=== PATIENT | female | born 1970 | race Two or more races ===

== ENCOUNTER 2019-04-28 16:27 | Emergency (ER) | payer BC ==
[~2019-04-28] VITALS: Ht 162.6 cm; Wt 85.0 kg
[2019-04-28 19:35] VITALS: BP 145/85
== END 2019-04-28 19:36 | disposition home or self-care (01) ==
LOC: ER 16:27
DX: H92.03 Otalgia, bilateral (principal); Z90.49 Acquired absence of other specified parts of digestive tract; Z98.890 Other specified postprocedural states
CPT/HCPCS: 99283

== ENCOUNTER 2020-04-24 20:30 | Emergency (ER) | payer BC ==
[~2020-04-24] VITALS: Ht 165.1 cm; Wt 78.0 kg
[2020-04-24] MEDS ORDERED: IBUPROFEN 400MG TABLET PO ONE (22:15)
[2020-04-24 22:59] VITALS: BP 146/89
[2020-04-24 23:02] LABS: CLARITY URINE CLOUDY (CLEAR); COLOR URINE YELLOW (YELLOW); KETONES URINE NEGATIVE (NEGATIVE); LEUKOCYTE ESTERASE URINE NEGATIVE (NEGATIVE); NITRITE URINE NEGATIVE (NEGATIVE); OCCULT BLOOD URINE NEGATIVE (NEGATIVE); PROTEIN URINE NEGATIVE (NEGATIVE); SPECIFIC GRAVITY URINE 1.021 (1.005-1.030)
== END 2020-04-24 23:55 | disposition home or self-care (01) ==
LOC: ER 20:30
DX: R51.9 Headache, unspecified (principal); I10 Essential (primary) hypertension; N39.0 Urinary tract infection, site not specified
CPT/HCPCS: 81003; 81025; 93005; 99284